=== PATIENT | female | born 1990 | race Caucasian/White ===

== ENCOUNTER 2020-08-07 18:38 | Inpatient (IN) ==
[2020-08-07 19:09] LABS: Bacteria,Urine Few per hpf (None-Few); Bilirubin,Urine Negative (Negative); Blood,Urine Moderate (Negative); Clarity,Urine Turbid (Clear); Color,Urine Yellow (Yellow); Glucose,Urine (UA) Normal (Normal); Ketones,Urine 10 mg/dL (Negative); Leukocyte Esterase,Urine Large (Negative); Mucus,Urine Few per lpf (None-Few); Nitrite,Urine Positive (Negative); Protein,Urine 100 mg/dL (Neg-Trace); RBC,Urine 50-100 per hpf (0-3); Specific Gravity,Urine 1.022 (1.010-1.025); Squamous Epithelial Cell,Urine Few per hpf (None-Few); Urobilinogen,Urine Normal (Normal); WBC,Urine TNTC per hpf (0-3)
[2020-08-07] MEDS ORDERED: Isovue-370 500 ML BOTTLE IVP ONE (21:59)
[2020-08-07] MEDS ORDERED: 0.9 % Sodium Chloride 1,000 ML IVC ONE (22:00)
[2020-08-07] MEDS ORDERED: Ondansetron 4 MG/2 ML VIAL IVP ONE (22:00)
[2020-08-07] MEDS ORDERED: cefTRIAXone 1,000 MG in 0.9 % Sodium Chloride Mini Bag 100 ML IVPB ONE (22:11)
[2020-08-07] MEDS ORDERED: *HR* FentaNYL (PF) 100 MCG/2 ML VIAL IVP ONE (22:56)
[2020-08-07 22:59] LABS: Hematocrit 40.7 % (35.3-44.9); Monocytes % 2.6 %; Red Cell Distribution Width 12.5 % (11.5-14.5)
[2020-08-07 23:00] LABS: Basophils # 0.1 K/mcL (0.0-0.2); Basophils % 0.2 %; Hemoglobin 13.8 g/dL (11.5-15.4); Immature Granulocytes % 0.9 % (0-4); Lymphocytes # 0.3 K/mcL (0.6-4.6); Lymphocytes % 1.2 %; Mean Corpuscular HGB Conc 33.9 g/dL (31.6-35.5); Mean Corpuscular Volume 82.7 fL (83.0-100.0); Monocytes # 0.7 K/mcL (0.0-1.3); Platelet Count 306 K/mcL (140-400); Red Blood Count 4.92 M/mcL (3.82-4.97); Segmented Neutrophils % 95.1 %; White Blood Count 25.5 K/mcL (4.3-11.1)
[2020-08-07 23:03] LABS: Neutrophils # 24.3 K/mcL (1.6-8.9)
[2020-08-07 23:19] LABS: Alanine Aminotransferase 8 Units/L (7-52); Albumin 4.6 g/dL (3.5-5.7); Albumin/Globulin Ratio 1.6 (1.1-2.2); Alkaline Phosphatase 72 Units/L (34-104); Aspartate Amino Transferase 13 Units/L (13-39); BUN/Creatinine Ratio 10 (6-26); Bilirubin,Direct 0.1 mg/dL (0.0-0.2); Bilirubin,Indirect 0.9 mg/dL (0.0-1.0); Blood Urea Nitrogen 11 mg/dL (6-20); Calcium 9.5 mg/dL (8.6-10.3); Carbon Dioxide 21 mEq/L (23-29); Chloride 101 mEq/L (98-107); Globulin 2.8 g/dL (2.4-3.5); Glucose 130 mg/dL (70-105); Lipase 7 Units/L (11-82); Osmolality,Calculated 279 (280-300); Potassium 3.8 mEq/L (3.5-5.1); Sodium 134 mEq/L (136-145); Total Protein 7.4 g/dL (6.4-8.9); eGFR For African Americans > 60 (> 60); eGFR For Non-African Americans 59 (> 60)
[2020-08-07 23:28] LABS: Platelet Estimate Normal (Normal)
[2020-08-08] MEDS ORDERED: *HR* FentaNYL (PF) 100 MCG/2 ML VIAL IVP ONE (01:48)
[2020-08-08] MEDS ORDERED: Ondansetron 4 MG/2 ML VIAL IVP ONE (01:49)
[2020-08-08] MEDS ORDERED: 0.9 % Sodium Chloride 1,000 ML IVC ONE (03:54)
[2020-08-08] MEDS ORDERED: 0.9 % Sodium Chloride 1,000 ML ONE (03:54)
[2020-08-08] MEDS ORDERED: Piperacillin/Tazobactam 3.375 GM in 0.9 % Sodium Chloride Mini Bag 100 ML IVPB ONE (05:04)
[2020-08-08] MEDS ORDERED: 0.9 % Sodium Chloride 1,000 ML IV ONE (05:05)
[2020-08-08] MEDS ORDERED: Norepinephrine 4 MG/254 ML IV.SOLN IVC SCH (06:15)
[2020-08-08] MEDS ORDERED: Ringers Solution, Lactated 1,000 ML ONE (07:24)
[2020-08-08] MEDS: Ringers Solution, Lactated 1,000 ML IVC ONE ×2 (07:29→08:41)
[2020-08-08] MEDS ORDERED: Ketorolac 15 MG/ML VIAL IVP ONE (08:35)
[2020-08-08] MEDS ORDERED: Naloxone 0.4 MG/ML INJ IVP PRN ×2 (08:37→17:49)
[2020-08-08] MEDS ORDERED: Acetaminophen 325 MG TABLET PO PRN ×2 (08:37→17:49)
[2020-08-08] MEDS ORDERED: *HR* HYDROcodone/Acet 5/325 mg TABLET PO PRN (08:37)
[2020-08-08] MEDS ORDERED: Ketorolac 15 MG/ML VIAL IVP PRN (08:37)
[2020-08-08] MEDS ORDERED: *HR* Midazolam HCl 2 MG/2 ML VIAL ONE (08:40)
[2020-08-08] MEDS ORDERED: *HR* FentaNYL (PF) 100 MCG/2 ML VIAL ONE (08:40)
[2020-08-08] MEDS ORDERED: *HR* Propofol 200 MG/20 ML VIAL IVP ONE (08:41)
[2020-08-08] MEDS ORDERED: Lidocaine -MPF 2% 2 ML VIAL ONE ×2 (08:43)
[2020-08-08] MEDS ORDERED: Ringer's Solution, Lactated 250 ML IV.SOLN IVC SCH (08:45)
[2020-08-08] MEDS ORDERED: Acetaminophen IV 1,000 MG/100 ML INFUS..BTL ONE (08:45)
[2020-08-08] MEDS ORDERED: Ringers Solution, Lactated 1,000 ML IV ONE (08:45)
[2020-08-08] MEDS ORDERED: Isovue-300 50ML VIAL ONE (08:59)
[2020-08-08] MEDS ORDERED: Scopolamine Patch 1.5 MG PATCH.TD72 ONE (09:07)
[2020-08-08] MEDS ORDERED: Metoclopramide 10 MG/2 ML VIAL ONE (09:07)
[2020-08-08] MEDS ORDERED: Famotidine 20 MG/2 ML VIAL ONE (09:07)
[2020-08-08] MEDS ORDERED: *HR* HYDROmorphone (PF) 1 MG/ML SYRINGE IVP PRN (09:39)
[2020-08-08] MEDS ORDERED: *HR* Labetalol 20 MG/4 ML SYRINGE IVP PRN (09:39)
[2020-08-08] MEDS ORDERED: Scopolamine Patch 1.5 MG PATCH.TD72 TD ONE (09:39)
[2020-08-08] MEDS ORDERED: *HR* HYDROmorphone 2 MG TABLET PO PRN (09:39)
[2020-08-08] MEDS ORDERED: *HR* OxyCODONE Immed Rel 5 MG TABLET PO PRN (09:39)
[2020-08-08] MEDS ORDERED: Promethazine 6.25 MG in Water for inj. (sterile) 20 ML IVPB PRN (09:39)
[2020-08-08] MEDS ORDERED: Dexamethasone 4 MG/ML VIAL ONE (09:48)
[2020-08-08] MEDS ORDERED: Ondansetron 4 MG/2 ML VIAL ONE (09:48)
[2020-08-08] MEDS: Ringers Solution, Lactated 1,000 ML IVC SCH ×3 (10:38→21:54)
[2020-08-08] MEDS ORDERED: *HR* HYDROcodone/Acet 5/325 mg TABLET PO ONE (14:55)
[2020-08-08] MEDS ORDERED: cefTRIAXone 2,000 MG in Water for inj. (sterile) 20 ML IVP SCH (18:00)
[2020-08-08] MEDS: cefTRIAXone 2,000 MG in 0.9 % Sodium Chloride Mini Bag 100 ML IVP SCH (19:29)
[2020-08-08] MEDS: *HR* HYDROcodone/Acet 5/325 mg TABLET PO PRN (20:03)
[2020-08-09] MEDS: Ketorolac 15 MG/ML VIAL IVP PRN ×2 (01:28→08:10)
[2020-08-09] MEDS: Ringers Solution, Lactated 1,000 ML IVC SCH ×2 (06:08→17:34)
[2020-08-09] MEDS: *HR* HYDROcodone/Acet 5/325 mg TABLET PO PRN (06:15)
[2020-08-09 06:53] LABS: Basophils % 0.1 %; Eosinophils % 0.1 %; Hematocrit 33.3 % (35.3-44.9); Hemoglobin 10.9 g/dL (11.5-15.4); Immature Granulocytes % 0.8 % (0-4); Lymphocytes # 1.3 K/mcL (0.6-4.6); Lymphocytes % 8.6 %; Mean Corpuscular HGB Conc 32.7 g/dL (31.6-35.5); Mean Corpuscular Hemoglobin 27.9 pg (28.0-33.3); Mean Corpuscular Volume 85.2 fL (83.0-100.0); Mean Platelet Volume 9.6 fL (9.4-12.4); Monocytes # 0.8 K/mcL (0.0-1.3); Monocytes % 4.8 %; Neutrophils # 13.3 K/mcL (1.6-8.9); Platelet Count 204 K/mcL (140-400); Red Blood Count 3.91 M/mcL (3.82-4.97); Red Cell Distribution Width 13.2 % (11.5-14.5); Segmented Neutrophils % 85.6 %; White Blood Count 15.5 K/mcL (4.3-11.1)
[2020-08-09 07:08] LABS: BUN/Creatinine Ratio 13 (6-26); Blood Urea Nitrogen 12 mg/dL (6-20); Calcium 8.1 mg/dL (8.6-10.3); Carbon Dioxide 21 mEq/L (23-29); Chloride 108 mEq/L (98-107); Glucose 96 mg/dL (70-105); Magnesium 1.7 mg/dL (1.6-2.6); Osmolality,Calculated 288 (280-300); Phosphorous 2.8 mg/dL (2.7-4.5); Potassium 3.5 mEq/L (3.5-5.1); Sodium 139 mEq/L (136-145); eGFR For African Americans > 60 (> 60); eGFR For Non-African Americans > 60 (> 60)
[2020-08-09] MEDS: BuPROPion SR (12 HR) 150 MG TABLET PO SCH (08:10)
[2020-08-09] MEDS: cefTRIAXone 2,000 MG in 0.9 % Sodium Chloride Mini Bag 100 ML IVP SCH (17:36)
[2020-08-09] MEDS ORDERED: Calcium Gluconate 1gm/50mL 1 GM/50 ML BAG IVPB ONE (20:26)
[2020-08-09 22:17] LABS: BUN/Creatinine Ratio 13 (6-26); Blood Urea Nitrogen 12 mg/dL (6-20); Calcium 7.9 mg/dL (8.6-10.3); Carbon Dioxide 22 mEq/L (23-29); Chloride 108 mEq/L (98-107); Glucose 111 mg/dL (70-105); Osmolality,Calculated 286 (280-300); Potassium 3.3 mEq/L (3.5-5.1); Sodium 138 mEq/L (136-145); Troponin I < 0.03 ng/mL (< 0.04); eGFR For African Americans > 60 (> 60); eGFR For Non-African Americans > 60 (> 60)
[2020-08-10 03:09] LABS: Basophils % 0.2 %; Eosinophils % 0.5 %; Hematocrit 29.4 % (35.3-44.9); Hemoglobin 9.8 g/dL (11.5-15.4); Immature Granulocytes % 0.3 % (0-4); Lymphocytes # 0.9 K/mcL (0.6-4.6); Lymphocytes % 9.9 %; Mean Corpuscular HGB Conc 33.3 g/dL (31.6-35.5); Mean Corpuscular Hemoglobin 28.5 pg (28.0-33.3); Mean Corpuscular Volume 85.5 fL (83.0-100.0); Mean Platelet Volume 9.9 fL (9.4-12.4); Monocytes # 0.4 K/mcL (0.0-1.3); Monocytes % 4.6 %; Neutrophils # 7.3 K/mcL (1.6-8.9); Platelet Count 179 K/mcL (140-400); Red Blood Count 3.44 M/mcL (3.82-4.97); Red Cell Distribution Width 12.9 % (11.5-14.5); Segmented Neutrophils % 84.5 %; White Blood Count 8.7 K/mcL (4.3-11.1)
[2020-08-10 03:21] LABS: BUN/Creatinine Ratio 13 (6-26); Blood Urea Nitrogen 10 mg/dL (6-20); Calcium 7.6 mg/dL (8.6-10.3); Carbon Dioxide 23 mEq/L (23-29); Chloride 107 mEq/L (98-107); Glucose 109 mg/dL (70-105); Osmolality,Calculated 284 (280-300); Potassium 3.3 mEq/L (3.5-5.1); Sodium 137 mEq/L (136-145); eGFR For African Americans > 60 (> 60); eGFR For Non-African Americans > 60 (> 60)
[2020-08-10] MEDS: Ringers Solution, Lactated 1,000 ML IVC SCH ×2 (03:41→03:43)
[2020-08-10 07:38] VITALS: BP 118/77
[2020-08-10] MEDS: BuPROPion SR (12 HR) 150 MG TABLET PO SCH (08:23)
== END 2020-08-10 11:30 | disposition home or self-care (01) | DRG 853 ==
LOC: EMEROOARM 18:38 → ICNU 18:38 → 2NNU 08-08 17:47
PROVIDERS: ADMIT Internal Medicine; ATTEND Internal Medicine